=== PATIENT | female | born 1970 | race Caucasian/White ===

== ENCOUNTER 2025-01-15 10:09 | Outpatient (CLI) | payer OTHER, SELFPAY ==
--- NOTE | ~2025-01-15 | US_ITS ---
Limited Abdominal Sonogram: Real-time sonographic imaging of the right upper quadrant was performed. Clinical History: Abdominal pain Findings: The liver appears normal with no evidence of mass lesion or bile duct dilatation. Main por rosy vein demonstrates normal direction of flow. The gallbladder is well distended, and appears normal with no evidence of gallstone or wall thickening. The common bile duct measures 3 mm. The visualize d pancreas, aorta, and IVC are unremarkable. Impression: No significant abnormality seen. Reviewed, dictated and finalized at location . Impression: No significant abnormality seen.
--- OUTSIDE RECORDS SUMMARY | 2025-01-15 10:34 | XMS_ITS | Clinical Summary ---
Author Organization [facility] Address [address] [place] [id number] Care Team Providers Care Assistant Community Director Name Role Phone Dashawn Estrada Primary Care Provider Allergies No known active allergies Medications ketoconazole 2 % cream APPLY TO BACK TWICE DAILY FOR 3 TO 4 WEEKS 1 Active ketoconazole 2 % shampoo SHAMPOO TO THE AFFECTED AREA OF BODY TWICE WEEKLY 1 Active miconazole (SOOTHE & COOL INZO ANTIFUNGAL) 2 % creamIndication s:Cracked skin on feet Apply topically 2 (two) times daily. 56 g 2 2 Active Active Problems Problem Noted Date Diagnosed Date Pain in right arm 08/02/2021 Pain of left heel 08/02/2021 Family History Medical History Relation Comments Heart Disease Mother Relation Status Comments Brother Father Alive Mother Social History Tobacco Use Types Packs/Day Years Used Date Smoking Tobacco: Never Smokeless Tobacco: Never Tobacco Cessation:Counseling Given: No Alcohol Use Standard Drinks/Week Comments Yes 0 (1 standard drink = 0.6 oz pur e alcohol) socially PHQ-2 Answer Date Recorded PHQ-2 Score - If the patient scores above 3, please move on to questions 3-9 0 07/20/2021 Comments No Sex and Gender Information Value Date Recorded Sex Assigned at Not on file Legal Sex Female 8:28 PM CDT Gender Identity Not on file Sexual Orientation Not on file Last Filed Vital Signs Vital Sign Reading Time Taken Comments Blood Pressure 124/70 07/20/2021 11:51 AM E/M ENGINEER Pulse 64 07/20/2021 11:51 AM E/M ENGINEER Temperature 36.4 C (97.6 F) 07/20/2021 11:51 AM E/M ENGINEER Respiratory Rate 16 07/20/2021 11:51 AM E/M ENGINEER Oxygen Saturation 97% 07/20/2021 11:51 AM E/M ENGINEER Inhaled Oxygen Concentration - - Weight 84.1 kg (185 lb 6.4 oz) 07/20/2021 11:51 AM E/M ENGINEER Height 165.1 cm (5' 5) 07/20/2021 11:51 AM E/M ENGINEER Body Mass Index 30.85 07/20/2021 11:51 AM E/M ENGINEER Plan of Treatment Health Maintenance Due Date Last Done Comments Colorectal Cancer Screening Colonoscopy (10 Years) 1969 Annual Physical 1972 Hepatitis C 1987 DTaP, Tdap and Td Vaccines ( 1 - Tdap) 1988 Hepatitis B Vaccines (1 of 3 - 19+ 3-dose series) 1988 Cervical Cancer Screening Pa p with HPV Testing (Age 30 to 64) Every 5 Years 1999 Mammogram Screening 2009 Cervical Cancer Screening Pa p Smear (Age 30 to 64) Every 3 Years 05/15/2016 05/15/2013 Cervical Cancer Screening with HPV 05/15/2016 Pneumococcal Vaccine: 50+ Ye ars (1 of 1 - PCV) 2019 Zoster Vaccines (1 of 2) 2019 COVID-19 Vaccine ( - 2023-2 5 season) 2024 Meningococcal B Vaccine Aged Out No l onger eligible based on patient's age to complete this topic Meningococcal Vaccine Aged Out No petros naila eligible based on patient's age to complete this topic RSV Immunizations Under 20 Months Aged Out No longer eligible based on patient's age to complete this topic Procedures Procedure Name Priority Date/Time Associated Diagnosis Comments OUTSIDE CYTOPATH CERV/VAG INTERPRET (PAP) (SCAN ORDER) Routine 05/15/2013 12:00 AM E/M ENGINEER from Last 3 Months or Most Recently Relevant to Health Maintenance Results * PAP SMEAR (05/15/2013 12:00 AM E/M ENGINEER) 05/15/2013 us Documents Scanned SCANNING Final Result [facility] from Last 3 Months or Most Recently Relevant to Health Maintenance Insurance Care Teams Assistant Community Director Relationship Specialty Start [place] [address] [place] [address] PCP - General Physician [facility] 08/29/23
== END 2025-01-15 10:10 | disposition home or self-care (01) ==
PROVIDERS: PCP Nurse Practitioner Family; Visit Provider Nurse Practitioner Family
DX: R10.11 Right upper quadrant pain (principal)
CPT/HCPCS: 76705

== ENCOUNTER 2025-03-11 02:08 | Day surgery (SDC) | payer OTHER, SELFPAY ==
[2025-02-24 12:16] VITALS: BMI 28.4
--- OUTSIDE RECORDS SUMMARY | 2025-03-11 02:09 | XMS_ITS | Clinical Summary ---
Author Organization [facility] Address [address] [place] [address] Care Team Providers Care Director Telecommunications Name Role Phone Dashawn Estrada Primary Care Provider [phone] Allergies No known active allergies Medications ketoconazole [...] Comments Blood Pressure 124/70 07/20/2021 11:51 AM FLUORESCENT LAMP REPLACER Pulse 64 07/20/2021 11:51 AM FLUORESCENT LAMP REPLACER Temperature 36.4 C (97.6 F) 07/20/2021 11:51 AM FLUORESCENT LAMP REPLACER Respiratory Rate 16 07/20/2021 11:51 AM FLUORESCENT LAMP REPLACER Oxygen Saturation 97% 07/20/2021 11:51 AM FLUORESCENT LAMP REPLACER Inhaled Oxygen Concentration - - Weight 84.1 kg (185 lb 6.4 oz) 07/20/2021 11:51 AM FLUORESCENT LAMP REPLACER Height 165.1 cm (5' 5) 07/20/2021 11:51 AM FLUORESCENT LAMP REPLACER Body Mass Index 30.85 07/20/2021 11:51 AM FLUORESCENT LAMP REPLACER Plan of Treatment Health Maintenance Due Date [...] Vaccines (1 of 2) 2019 COVID-19 Vaccine (1 - 2023-2 5 season) 2025 Meningococcal B Vaccine Aged Out No l [...] (PAP) (SCAN ORDER) Routine 05/15/2013 12:00 AM FLUORESCENT LAMP REPLACER from Last 3 Months or Most Recently Relevant to Health Maintenance Results * PAP SMEAR (05/15/2013 12:00 AM FLUORESCENT LAMP REPLACER) 05/15/2013 us Documents Scanned SCANNING Final Result [facility] from Last 3 Months or Most Recently Relevant to Health Maintenance Insurance Care Teams Director Telecommunications Relationship Specialty Start [place] [address] [place] [address] PCP - General Physician [facility] 08/29/23
[2025-03-11 06:53] VITALS: BP 135/85; PULSE 70; RESP 18; TEMP 36.1; O2SAT 100
[2025-03-11] MEDS: LACTATED RINGERS 1,000 ML 150 ML IV CONT (07:02)
--- NOTE | 2025-03-11 07:38 | WPDANESEPPF ---
Anes - Initial Pre Proc Eval Procedure: Operation Date: 03/11/25 08:00 Proposed Procedures p Screening Colonoscopy - Scar Olivera MD Date/Time: 03/11/25 07:38 Surgeon: Scar Olivera MD Pre Op Diagnosis: Screening Patient Data Age: 54 Gender: F Height: 1.65 m Weight: 86.1 kg Last Vital Signs Temp 97 F L 03/11/25 06:53 Pulse 70 03/11/25 06:53 Resp 18 03/11/25 06:53 BP 135/85 03/11/25 06:53 Pulse Ox 100 03/11/25 06:53 O2 Del Method Room Air 03/11/25 06:53 Allergies Allergy/AdvReac Type Severity Reaction Status Date / Time No Known Allergies Allergy Verified 03/11/25 06:52 Home Medications ?Medication ?Instructions ?Recorded ?Confirmed ?Type cholecalciferol (vitamin D3) 62.5 62.5 mcg PO DAILY 02/24/25 03/11/25 History mcg (2,500 unit) capsule magnesium 250 mg tablet 250 mg PO HS 02/24/25 03/11/25 History Patient hx anesthesia problems: none Family hx anesthesia problems: none Results Review: All pre-operative results and documents have been reviewed as part of the pre-operative evaluation. [facility] Past Medical History Medical History Bruises easily Chest pain Anemia Surgical History Surgical History History of 1995 History of appendectomy 2004 Family History Family History Father No problems noted. Mother Heart disease Sibling Heart disease Drug abuse Social History Social History Smoking status: Never smoker Alcohol intake: never Alcohol use details: 8-14 per week Substance use: never Substance use type: does not use Do You Feel Safe in your Home?: No Lack of Transportation: No Lack of Food: Never True Current Housing: I Have Housing Concerned About Future Housing: No Difficulty Paying Gas/Electric Bills: No Difficulty Paying for Meds: No Currently Unemployed: No Education: High School Diploma/GED Difficulty w/ Childcare or Family Care: No Living arrangements: with family Spiritual care concerns: No Anes - Eval Final PreProcedure Day of Procedure 03/11/25 07:38 Patient weight: obese Lungs: normal air movement Airway: Mallampati scale class II Neurological: alert and oriented Last oral intake: >/= 8 hours ASA classification: II Emergent: no Anesthetic plan: proceed Anesthesia type and monitoring: general GIVS and standard monitoring Results Review: All pre-operative results and documents have been reviewed as part of the pre-operative evaluation. BMI 31, pt can walk 1-2 fos, no cp or sob. Informed Consent: The patient's anesthetic plan and its attendant risks and benefits were discussed with the patient/family/POA. Questions were solicited and answers provided to the satisfaction of the patient/family/POA.
--- NOTE | 2025-03-11 08:13 | PM.IMHP ---
H&P: HPI History of Present Illness Date/Time: 03/11/25 08:13 Chief Complaint: Screening colonoscopy Narrative: This is the patient's first colonoscopy. There are no GI symptoms and there is no family history of colorectal cancer. Review of Systems Review of Systems: All systems reviewed & are unremarkable except as noted in HPI and below [facility] Past Medical History Medical History Bruises easily Chest pain Anemia Surgical History Surgical History History of 1995 History of appendectomy 2004 Family History Family History Father No problems noted. Mother Heart disease Sibling Heart disease Drug abuse Social History Social History Smoking status: Never smoker Alcohol intake: never Alcohol use details: 8-14 per week Substance use: never Substance use type: does not use Do You Feel Safe in your Home?: No Lack of Transportation: No Lack of Food: Never True Current Housing: I Have Housing Concerned About Future Housing: No Difficulty Paying Gas/Electric Bills: No Difficulty Paying for Meds: No Currently Unemployed: No Education: High School Diploma/GED Difficulty w/ Childcare or Family Care: No Living arrangements: with family Spiritual care concerns: No Meds Home Medications and Allergies Home Medications ?Medication ?Instructions ?Recorded ?Confirmed ?Type cholecalciferol (vitamin D3) 62.5 62.5 mcg PO DAILY 02/24/25 03/11/25 History mcg (2,500 unit) capsule magnesium 250 mg tablet 250 mg PO HS 02/24/25 03/11/25 History Allergies Allergy/AdvReac Type Severity Reaction Status Date / Time No Known Allergies Allergy Verified 03/11/25 06:52 Vital Signs Vital Signs - 24 hr 03/11/25 06:53 Temperature 97 F L Pulse Rate 70 Respiratory Rate 18 Blood Pressure 135/85 Pulse Oximetry 100 Oxygen Delivery Room Air Exam Const: General: cooperative and healthy appearing Resp: Effort & Inspection: normal respiratory effort and able to speak in complete sentences Auscultation: clear to auscultation bilaterally Cardio: Rate: regular rate Rhythm: regular rhythm GI: Inspection: normal to inspection GI Palp: No No hepatosplenomegaly present Auscultation: normal bowel sounds Rectal Exam: deferred Skin: General skin exam: normal color Psych: Appearance: grossly normal Mental Status: mental status grossly normal Assessment and Plan Assessment and plan (1) Colon cancer screening: Code(s): Z12.11 - Encounter for screening for malignant neoplasm of colon Status: Acute Assessment and Plan: The patient is deemed a good candidate for the procedure. Consent signed. Will proceed.
--- NOTE | 2025-03-11 08:29 | S_PTH ---
PATIENT: Aviva Palafox LOC: [facility] U#:[id number] AGE/SX: 54/F ROOM: RE03/11/[address]: Scar Olivera MD : 1970 BED: DIS: 03/11/2025 SPEC #: [id number] RECD: 03/11/25 08:56 STATUS: DESIREE RERegis #: [id number] ESCOBAR: 03/11/25 08:[address]: Scar Olivera DEPT: [facility] Surgical RECD BY: Theodora Trejo ENTERED: 03/11/25 08:56 SP TYPE: Surgical OTHR DR: Estrellita Rose, TATIANA Tissues: A - Colon Polypectomy Procedures: Hematoxylin and Eosin Stain Gross and Microscopic Level 4
[2025-03-11 08:30] VITALS: BP 116/61; PULSE 70; RESP 18; O2SAT 100
[2025-03-11 08:40] VITALS: BP 127/80; PULSE 72; RESP 18; O2SAT 100
[2025-03-11 08:50] VITALS: BP 130/77; PULSE 67; RESP 18; O2SAT 100
== END 2025-03-11 09:04 | disposition home or self-care (01) ==
PROVIDERS: PCP Nurse Practitioner Family; Referring Provider Nurse Practitioner Family; Visit Provider Internal Medicine Gastroenterology
PROC: 0DJD8ZZ Inspection of Lower Intestinal Tract, Via Natural or Artificial Opening Endoscopic (ICD-10-PCS; CPT 45378; principal; 2025-03-11 08:00)
DX: Z12.11 Encounter for screening for malignant neoplasm of colon (principal); K63.5 Polyp of colon; K57.30 Diverticulosis of large intestine without perforation or abscess without bleeding; D64.9 Anemia, unspecified; E66.9 Obesity, unspecified; Z68.31 Body mass index [BMI] 31.0-31.9, adult; Z98.890 Other specified postprocedural states; Z82.49 Family history of ischemic heart disease and other diseases of the circulatory system
CPT/HCPCS: 45385; 88305; J2003; J2704; J7120